=== PATIENT | male | born 1990 | race Hispanic/Latino ===

== ENCOUNTER 2018-05-05 19:04 | Emergency (ER) | payer OTHER ==
[2018-05-05 20:09] LABS: Urine Amorphous Sediment 1+ /HPF (NONE SEEN); Urine Bacteria <20 /HPF (NONE SEEN); Urine Culture Reflex Order NOT NEEDED
[2018-05-05 20:09] LABS: Urine Blood 2+ (NEG); Urine Glucose NEGATIVE (NEG); Urine Protein NEGATIVE (NEG)
[2018-05-05] MEDS ORDERED: NA CHLORIDE 0.9% 1,000 ML ONE ×2 (20:51→22:01)
[2018-05-05 20:59] LABS: Absolute Lymphocytes (CBC) 0.6 K/uL (0.7-4.9); Absolute Monocytes 0.6 K/uL (0.1-1.3); Absolute Neutrophil 9.7 K/uL (1.8-8.0); Basophils % 0.2 % (0-1.3); Hematocrit 45.4 % (39.6-49.0); Lymphocytes % 5.6 % (15.3-44.8); MCH 30.9 pg (27.0-35.0); MCV 89.3 fL (80-100); MPV 9.4 fL (7.6-11.3); Monocytes % 5.7 % (3.3-12.3); RBC Red Blood Cell Count 5.09 M/uL (4.33-5.43)
--- NOTE | 2018-05-05 21:00 | RAD REPORT ---
EXAM DESCRIPTION: CT - Stone Protocol - 05/05/2018 8:39 pm CLINICAL HISTORY: Abdominal pain. Hematuria/left-sided pain COMPARISON: None. TECHNIQUE: Computed axial tomography of the abdomen pelvis was obtained without oral or IV contrast. Lack of IV and oral contrast limits evaluation of solid organs, bowel, and vessels. Coronal reformat bteo images were obtained and reviewed. All CT scans are performed using dose optimization technique as appropriate and may include automated exposure control or mA/KV adjustment according to patient size. FINDINGS: A renal calculus is not seen. An ureteral calculus is not noted. A bladder calculus is not present. The liver, spleen, pancreas and adrenals appear grossly normal There is no evidence of diverticulitis. The Tiny umbilical hernia is seen IMPRESSION: Negative for a genitourinary calculus
--- NOTE | 2018-05-05 21:01 | RAD REPORT ---
EXAM DESCRIPTION: [facility] Single View05/05/2018 8:35 pm CLINICAL HISTORY: cough COMPARISON: none FINDINGS: The lungs appear clear of acute infiltrate. The heart is normal size IMPRESSION: No acute abnormalities displayed
[2018-05-05 21:13] LABS: ALT/SGPT 35 U/L (12-78); AST/SGOT 21 U/L (15-37); Albumin 4.5 g/dL (3.4-5.0); Alkaline Phosphatase 91 U/L (45-117); BUN Blood Urea Nitrogen 9 mg/dL (7-18); Bicarbonate 29 mmol/L (21-32); Bilirubin Direct 0.2 mg/dL (0-0.2); Bilirubin Total 0.7 mg/dL (0.2-1.0); Glucose Level 101 mg/dL (74-106); Lipase 95 U/L (73-393); Potassium 3.7 mmol/L (3.5-5.1); Protein, Total 8.1 g/dL (6.4-8.2); Sodium Level 138 mmol/L (136-145)
[2018-05-05 21:28] LABS: Platelet Estimate ADEQ; Urine White Blood Cell Casts OK
[2018-05-05 21:29] LABS: Blood Morphology Comment NOT SEEN (NOT SEEN)
[2018-05-05] MEDS ORDERED: IBUPROFEN 400 MG TAB ONE (21:49)
--- NOTE | 2018-05-05 22:45 | EDPHYS ---
Physician Documentation [facility] Name: Jorge Sanford III Age: 27 yrs Sex: Male : 1990 Arrival Date: 05/05/2018 Time: 19:11 Bed 23 Private MD: ED Physician Romulo Saab HPI: 05/05 19:50 This 27 yrs old Male presents to ER via Ambulatory with complaints of Urinary cp Problem, BLOOD IN URINE. 19:50 The patient presents with urinary symptoms, hematuria. cp 19:50 Onset: The symptoms/episode began/occurred today. Associated signs and symptoms: cp Pertinent positives: fever, hematuria, left lower back pain, Pertinent negatives: abdominal pain, constipation, diarrhea, dysuria, vomiting. Severity of symptoms: in the emergency department the symptoms are unchanged, despite home interventions. Historical: - Allergies: 19:37 No Known Allergies; aj1 - Home Meds: 19:37 None [Active]; aj1 - PMHx: 19:37 None; aj1 - PSHx: 19:37 None; aj1 - Immunization history:: Flu vaccine is not up to date. - Social history:: Smoking status: Patient uses tobacco products, smokes one-half pack cigarettes per day. - Ebola Screening: : Patient denies travel to an Ebola-affected area in the 21 days before illness onset. ROS: 19:55 Constitutional: Positive for fever, Negative for poor PO intake. cp 19:55 Eyes: Negative for injury, pain, redness, and discharge. cp 19:55 Neck: Negative for pain with movement, pain at rest, stiffness. 19:55 Cardiovascular: Negative for chest pain, palpitations. 19:55 Respiratory: Positive for cough, Negative for shortness of breath, wheezing. 19:55 Abdomen/GI: Negative for abdominal pain, black/tarry stool, rectal bleeding. 19:55 Back: Positive for pain at rest, pain with movement, of the left low back. 19:55 : Positive for hematuria, Negative for penile discharge, penile pain, testicular pain 19:55 Skin: Negative for cellulitis, rash. 19:55 Neuro: Negative for altered mental status, headache, weakness. 19:55 All other systems are negative. Exam: 20:05 Constitutional: The patient appears in no acute distress, alert, awake, cp non-diaphoretic, non-toxic, well developed, well nourished, febrile. 20:05 Head/Face: Normocephalic, atraumatic. Eyes: Pupils equal round and reactive to light, cp extra-ocular motions intact. Lids and lashes normal. Conjunctiva and sclera are non-icteric and not injected. Cornea within normal limits. Periorbital areas with no swelling, redness, or edema. ENT: Nares patent. No nasal discharge, no septal abnormalities noted. Tympanic membranes are normal and external auditory canals are clear. Oropharynx with no redness, swelling, or masses, exudates, or evidence of obstruction, uvula midline. Mucous membranes moist. Neck: Trachea midline, no thyromegaly or masses palpated, and no cervical lymphadenopathy. Supple, full range of motion without nuchal rigidity, or vertebral point tenderness. No Meningismus. Chest/axilla: Normal chest wall appearance and motion. Nontender with no deformity. No lesions are appreciated. 20:05 Cardiovascular: Rate: tachycardic, Rhythm: regular, Edema: is not appreciated. 20:05 Respiratory: the patient does not display signs of respiratory distress, Respirations: normal, no use of accessory muscles, no retractions, no splinting, no tachypnea, labored breathing, is not present, Breath sounds: are clear throughout, no decreased breath sounds, no stridor, no wheezing. 20:05 Abdomen/GI: Inspection: abdomen appears normal, Bowel sounds: active, all quadrants, Palpation: abdomen is soft and non-tender, in all quadrants, rebound tenderness, is not appreciated, involuntary guarding, is not appreciated. 20:05 Back: pain, that is mild, of the left low back, ROM is normal, Straight leg raises: of both lower extremities does not illicit pain. 20:05 : Male external genitalia: Circumcision noted. swelling: is not appreciated, tenderness, is not appreciated, Sexual behavior: the patient is sexually active, and reports a single partner. 20:05 Skin: cellulitis, is not appreciated, no rash present. 20:05 Neuro: Orientation: to person, place \T\ time. Mentation: is normal, Cerebellar function: is grossly normal, Motor: moves all fours, strength is normal, Sensation: is normal, Gait: is steady. Vital Signs: 19:37 BP 137 / 89; Pulse 120; Resp 20; Temp 100.1; Pulse Ox 98% on R/A; Weight 78.02 kg (R); aj1 Height 5 ft. 5 in. (165.10 cm) (R); Pain 10/10; 20:30 BP 136 / 88; Pulse 115; Resp 18; Pulse Ox 99% on R/A; kr2 21:44 BP 143 / 86; Pulse 109; Resp 17; Temp 102.4; Pulse Ox 100% on R/A; kr2 22:35 BP 142 / 82 LA Supine (auto/reg); Pulse 104; Resp 17; Temp 101.2(O); Pulse Ox 98% on jp3 R/A; 19:37 Body Mass Index 28.62 (78.02 kg, 165.10 cm) aj1 MDM: 19:40 Patient medically screened. cp 20:00 Differential diagnosis: UTI, urinary retention, prostatitis, urethritis, kidney stone. cp 22:44 Data reviewed: vital signs, nurses notes, lab test result(s), radiologic studies, CT cp scan, plain films. 22:44 Counseling: I had a detailed discussion with the patient and/or guardian regarding: the cp historical points, exam findings, and any diagnostic results supporting the discharge/admit diagnosis, lab results, radiology results, the need for outpatient follow up, a family practitioner, to return to the emergency department if symptoms worsen or persist or if there are any questions or concerns that arise at home. Response to treatment: the patient's symptoms have markedly improved after treatment, VSS. Symptoms improved with IV fluids and meds. Radiology studies negative for acute findings, and as a result, I will discharge patient. 05/05 19:46 Order name: Urine Microscopic Only; Complete Time: 20:16 aa1 05/05 21:12 Interpretation: Normal except: URBC 10-20. cp 05/05 19:47 Order name: Urine Dipstick--Ancillary (enter results) mw2 05/05 19:48 Order name: Urine Dipstick-Ancillary; Complete Time: 20:16 EDMS 05/05 21:12 Interpretation: UBLD 2+. cp 05/05 20:17 Order name: Basic Metabolic Panel; Complete Time: 21:25 cp 05/05 21:26 Interpretation: Reviewed. cp 05/05 20:17 Order name: CBC with Diff; Complete Time: 21:40 cp 05/05 21:13 Interpretation: Normal except: WBC 11.0; NORA% 88.5; LYM% 5.6; NEUT A 9.7; LYMA 0.6. 05/05 20:17 Order name: Creatinine for Radiology; Complete Time: 21:25 cp 05/05 21:26 Interpretation: Reviewed. 05/05 20:17 Order name: Hepatic Function; Complete Time: 21:25 cp 05/05 21:25 Interpretation: Normal except: GLOB 3.6. 05/05 20:17 Order name: Lipase; Complete Time: 21:25 cp 05/05 21:26 Interpretation: LIP 95; Reviewed. 05/05 20:17 Order name: CT Stone Protocol; Complete Time: 21:03 cp 05/05 21:04 Interpretation: Report reviewed. 05/05 20:17 Order name: Influenza Screen (a \T\ B); Complete Time: 21:40 cp 05/05 21:41 Interpretation: Reviewed. 05/05 20:17 Order name: XRAY Chest (1 view); Complete Time: 21:03 cp 05/05 21:13 Interpretation: Report review. 05/05 21:04 Order name: CBC Smear Scan; Complete Time: 21:40 EDMS 05/05 20:17 Order name: IV Saline Lock; Complete Time: 20:34 cp 05/05 20:17 Order name: Labs collected and sent; Complete Time: 20:34 cp 05/05 20:18 Order name: Misc. Order: draw blood cultures and place to side; Complete Time: 20:34 cp 05/05 22:34 Order name: Vital Signs: please update to include temp; Complete Time: 22:39 cp Administered Medications: 20:45 Drug: NS 0.9% 1000 ml Route: IV; Rate: 1 bolus; Site: right antecubital; kr2 21:44 Follow up: Response: No adverse reaction; IV Status: Completed infusion kr2 21:44 Drug: Ibuprofen 800 mg Route: PO; kr2 22:40 Follow up: Response: No adverse reaction; Temperature is decreased; Pain is decreased kr2 21:57 Drug: NS 0.9% 1000 ml Route: IV; Rate: 1 bolus; Site: right antecubital; kr2 22:40 Follow up: Response: No adverse reaction; IV Status: Completed infusion kr2 22:47 Drug: Tylenol 1000 mg Route: PO; kr2 22:52 Follow up: Response: Medication administered at discharge. kr2 Disposition: 05/05/18 22:44 Discharged to Home. Impression: Hematuria, unspecified, Low back pain, Fever, unspecified. - Condition is Stable. - Discharge Instructions: Back Pain, Adult, Fever, Adult, Hematuria, Adult. - Prescriptions for Ibuprofen 800 mg Oral Tablet - take 1 tablet by ORAL route every 8 hours As needed take with food; 30 tablet. - Medication Reconciliation Form, Thank You Letter, Antibiotic Education, Prescription Opioid Use form. - Follow up: Private Physician; When: 1 - 2 days; Reason: Recheck today's complaints. - Problem is new. - Symptoms have improved. Addendum: 05/07/2018 04:07 Co-signature as Attending Physician, Romulo Saab MD I agree with the assessment and w a plan of care. Signatures: Dispatcher [employer] EDHetal Garcia RN RN aj1 Eder Riggs PA PA Romulo Adams MD MD wi Tierra Auguste RN RN kr2 Corrections: (The following items were deleted from the chart) 05/05 21:13 21:13 Normal except: WBC 11.0; NORA% 88.5; LYM% 5.6; NEUT A 9.7. cp cp 22:53 22:44 05/05/2018 22:44 Discharged to Home. Impression: Hematuria, unspecified; Low back kr2 pain; Fever, unspecified. Condition is Stable. Forms are Medication Reconciliation Form, Thank You Letter, Antibiotic Education, Prescription Opioid Use. Follow up: Private Physician; When: 1 - 2 days; Reason: Recheck today's complaints. Problem is new. Symptoms have improved. cp
--- NOTE | 2018-05-05 22:45 | ER ---
Nurse's Notes [facility] Name: Jorge Sanford III Age: 27 yrs Sex: Male : 1990 Arrival Date: 05/05/2018 Time: 19:11 Bed 23 Private MD: Diagnosis: Hematuria, unspecified;Low back pain;Fever, unspecified Presentation: 05/05 19:34 Presenting complaint: Patient states: "Around 4, I went to the restroom and there was aj1 blood in my urine. I went home and peed again and it was a tint of red." Denies dysuria, urinary frequency. Transition of care: patient was not received from another setting of care. Onset of symptoms was May 05, 2018. Risk Assessment: Do you want to hurt yourself or someone else? Patient reports no desire to harm self or others. Initial Sepsis Screen: Does the patient meet any 2 criteria? HR > 90 bpm. No. Patient's initial sepsis screen is negative. Does the patient have a suspected source of infection? Yes: Dysuria/Frequency/Urgency/UTI. Care prior to arrival: None. 19:34 Method Of Arrival: Ambulatory aj1 19:34 Acuity: NINA 3 aj1 Triage Assessment: 19:37 General: Appears in no apparent distress. uncomfortable, Behavior is calm, cooperative, aj1 appropriate for age. Pain: Complains of pain in face and back Pain currently is 10 out of 10 on a pain scale. Neuro: Level of Consciousness is awake, alert, obeys commands. Cardiovascular: Patient's skin is warm and dry. Respiratory: Airway is patent Respiratory effort is even, unlabored, Respiratory pattern is regular, symmetrical. Historical: - Allergies: 19:37 No Known Allergies; aj1 - Home Meds: 19:37 None [Active]; aj1 - PMHx: 19:37 None; aj1 - PSHx: 19:37 None; aj1 - Immunization history:: Flu vaccine is not up to date. - Social history:: Smoking status: Patient uses tobacco products, smokes one-half pack cigarettes per day. - Ebola Screening: : Patient denies travel to an Ebola-affected area in the 21 days before illness onset. Screenin:50 Abuse screen: Denies threats or abuse. Denies injuries from another. Nutritional kr2 screening: No deficits noted. Tuberculosis screening: No symptoms or risk factors identified. Fall Risk None identified. Assessment: 19:46 General: Appears in no apparent distress. uncomfortable, well groomed, well developed, kr2 well nourished, Behavior is calm, cooperative, appropriate for age. Pain: Complains of pain in head, back and entire body Pain currently is 10 out of 10 on a pain scale. Quality of pain is described as aching, Is continuous, Alleviated by rest. Neuro: Level of Consciousness is awake, alert, obeys commands, Oriented to person, place, time, situation, Appropriate for age. Cardiovascular: Capillary refill < 3 seconds in bilateral fingers Patient's skin is warm and dry. Respiratory: Airway is patent Respiratory effort is even, unlabored, Respiratory pattern is regular, symmetrical. GI: Abdomen is flat, non-distended. : Reports blood in urine and "pain when the blood came out." Denies having a history of kidney stones or any trauma. States he always has back pain. EENT: Oral mucosa is moist. Derm: Skin is intact, is healthy with good turgor, Skin is pink, warm \\T\\ dry. Musculoskeletal: Circulation, motion, and sensation intact. 20:53 Reassessment: Patient appears in no apparent distress at this time. Patient and/or kr2 family updated on plan of care and expected duration. Pain level reassessed. Patient is alert, oriented x 3, equal unlabored respirations, skin warm/dry/pink. 21:49 Reassessment: Patient appears in no apparent distress at this time. Patient and/or kr2 family updated on plan of care and expected duration. Pain level reassessed. Patient is alert, oriented x 3, equal unlabored respirations, skin warm/dry/pink. 22:41 Reassessment: Patient appears in no apparent distress at this time. Patient and/or kr2 family updated on plan of care and expected duration. Pain level reassessed. Patient is alert, oriented x 3, equal unlabored respirations, skin warm/dry/pink. Patient states feeling better. Vital Signs: 19:37 BP 137 / 89; Pulse 120; Resp 20; Temp 100.1; Pulse Ox 98% on R/A; Weight 78.02 kg (R); aj1 Height 5 ft. 5 in. (165.10 cm) (R); Pain 10/10; 20:30 BP 136 / 88; Pulse 115; Resp 18; Pulse Ox 99% on R/A; kr2 21:44 BP 143 / 86; Pulse 109; Resp 17; Temp 102.4; Pulse Ox 100% on R/A; kr2 22:35 BP 142 / 82 LA Supine (auto/reg); Pulse 104; Resp 17; Temp 101.2(O); Pulse Ox 98% on jp3 R/A; 19:37 Body Mass Index 28.62 (78.02 kg, 165.10 cm) aj1 ED Course: 19:11 Patient arrived in ED. al2 19:35 Urine collected: clean catch specimen, clear, donaldo colored, Amount Voided: 120mL. jp3 19:37 Triage completed. aj1 19:37 Arm band placed on Patient placed in an exam room. aj1 19:40 Eder Riggs PA is PHCP. cp 19:40 Romulo Saab MD is Attending Physician. cp 19:48 Urine Microscopic Only Sent. jp3 19:51 Patient has correct armband on for positive identification. Bed in low position. Call kr2 light in reach. Side rails up X 1. Adult w/ patient. Pulse ox on. NIBP on. Door closed. Warm blanket given. Head of bed elevated. 20:[address] via wheelchair. vr 20:30 Initial lab(s) drawn, by me, sent to lab. First set of blood cultures drawn by me, Flu jp3 and/or RSV swab sent to lab. Inserted saline lock: 20 gauge in right antecubital area, using aseptic technique. Blood collected. 20:36 XRAY Chest (1 view) In Process Unspecified. EDMS 20:39 CT completed. Patient tolerated procedure well. Patient moved back from CT. nj 20:39 CT Stone Protocol In Process Unspecified. EDMS 20:39 Influenza Screen (a \\T\\ B) Sent. jp3 20:39 Basic Metabolic Panel Sent. jp3 20:39 CBC with Diff Sent. jp3 20:39 Creatinine for Radiology Sent. jp3 20:39 Hepatic Function Sent. jp3 20:39 Lipase Sent. jp3 20:40 Urine Dipstick--Ancillary (enter results) Sent. jp3 20:52 Tierra Auguste, RN is Primary Nurse. kr2 22:50 IV discontinued, intact, bleeding controlled, No redness/swelling at site. Pressure jp3 dressing applied. 22:52 No provider procedures requiring assistance completed. kr2 22:53 IV Dc'd by [facility] at 2250, see note above. kr2 Administered Medications: 20:45 Drug: NS 0.9% 1000 ml Route: IV; Rate: 1 bolus; Site: right antecubital; kr2 21:44 Follow up: Response: No adverse reaction; IV Status: Completed infusion kr2 21:44 Drug: Ibuprofen 800 mg Route: PO; kr2 22:40 Follow up: Response: No adverse reaction; Temperature is decreased; Pain is decreased kr2 21:57 Drug: NS 0.9% 1000 ml Route: IV; Rate: 1 bolus; Site: right antecubital; kr2 22:40 Follow up: Response: No adverse reaction; IV Status: Completed infusion kr2 22:47 Drug: Tylenol 1000 mg Route: PO; kr2 22:52 Follow up: Response: Medication administered at discharge. kr2 Outcome: 22:44 Discharge ordered by MD. cp 22:52 Discharged to home ambulatory, with family. kr2 22:52 Condition: good 22:52 Discharge instructions given to patient, family, Instructed on discharge instructions, follow up and referral plans. medication usage, Demonstrated understanding of instructions, follow-up care, medications, Prescriptions given X 1. 22:53 Patient left the ED. kr2 Signatures: Dispatcher [employer] EDHetal Garcia RN RN Porsha Meléndez Corey, PA PA cp Jordan, Nathan nj Reaves, Karey, RN RN kr2 Priscila Singh Jacob jp3 Corrections: (The following items were deleted from the chart) 22:42 22:35 Temp 101.2F Oral; jp3 jp3
[2018-05-05] MEDS ORDERED: ACETAMINOPHEN 500 MG TAB ONE (22:53)
== END 2018-05-05 22:53 | disposition home or self-care (01) ==
LOC: ER 19:04
DX: M54.5 Low back pain (principal); R50.9 Fever, unspecified; F17.210 Nicotine dependence, cigarettes, uncomplicated
CPT/HCPCS: 36415; 71045; 74176; 76377; 80048; 80076; 81003; 81015; 83690; 85025; 87804; 96360; 96361; 99284; J7030

== ENCOUNTER 2021-06-18 07:32 | Day surgery (SDC) | payer BC ==
[2021-06-18] MEDS ORDERED: Ringers Lactate 1,000 ML IV ONE (07:35)
[2021-06-18] MEDS ORDERED: propofoL 200 MG/20 ML VIAL IV ONE ×3 (08:34→08:51)
[2021-06-18] MEDS ORDERED: LIDOCAINE 1% MPF 5 ML VIAL ONE (08:34)
--- NOTE | 2021-06-18 09:03 | ENDO RPT ---
[address], [address] EGD PROCEDURE REPORT EXAM DATE: 06/18/2021 PATIENT NAME: Jogre Sanford MR#: [id number] BIRTHDATE: 1990 ATTENDING: Rachid Pope DR STATUS: outpatient PEGA DEVELOPER: Lee Ann Guerrero RN and Marielle Gustafson INDICATIONS: The patient is a 30 yr old Male here for an EGD due to mid epigastric abdominal pain PROCEDURE PERFORMED: EGD with biopsy for H. pylori MEDICATIONS: Per Anesthesia. TOPICAL ANESTHETIC: none CONSENT: The patient understands the risks and benefits of the procedure and understands that these risks include, but are not limited to: sedation, allergic reaction, infection, perforation and/or bleeding. Alternative means of evaluation and treatment include, among others: physical exam, x-rays, and/or surgical intervention. The patient elects to proceed with this endoscopic procedure. DESCRIPTION OF PROCEDURE: During intra-op preparation period all mechanical medical equipment was checked for proper function. Hand hygiene and appropriate measures for infection prevention was taken. Procedure, possible complications, and alternatives including but not limited to the possibility of bleeding, perforation, tear, infection, sepsis, need for surgery, need for blood transfusion, and anesthesia related complications were explained to the patient. After the risks, benefits and alternatives of the procedure were thoroughly explained, Informed consent was verified, confirmed and timeout was successfully executed by the treatment team. The patient was placed in the left lateral position. The patient was anesthetized with topical anesthesia. Through the anesthetized oropharyngeal area, the scope was passed without any difficulty. The EG-[id number] ([id number]) endoscope was introduced through the mouth and advanced to the third portion of the duodenum. Retroflexed views revealed no abnormalities. The gastroscope was then slowly withdrawn and removed. Mild gastritis was found in the body and the antrum of the stomach. Multiple biopsies were obtained and sent to pathology. A biopsy for H. pylori was taken. An erosion was found in the upper esophagus. Located 12 cm from the point of entry. A biopsy of the GEJ was obtained to rule out Yadav's. ADVERSE EVENTS: There were no complications. IMPRESSIONS: 1. Mild gastritis was found in the body and the antrum of the stomach 2. An erosion was found in the upper esophagus RECOMMENDATIONS: 1. acid suppression therapy 2. anti-reflux regimen 3. await biopsy results 4. follow-up: office 2 week(s) 5. avoid NSAIDS 6. follow-up of helicobacter pylori status, treat if indicated REPEAT EXAM: Rachid Pope DR eSigned: Rachid Pope DR 06/18/2021 9:02 AM cc: CPT CODES: ICD9 CODES: PATIENT NAME: Jorge Sanford MR#: [id number]
[2021-06-18 09:17] VITALS: TEMP 97.2
[2021-06-18 09:28] VITALS: BP 107/86; O2SAT 99
== END 2021-06-18 09:32 | disposition home or self-care (01) ==
LOC: OR 07:32
PROVIDERS: ATTEND Surgery
PROC: 0DB68ZX Excision of Stomach, Via Natural or Artificial Opening Endoscopic, Diagnostic (ICD-10-PCS; 2021-06-18)
PROC: 0DB18ZX Excision of Upper Esophagus, Via Natural or Artificial Opening Endoscopic, Diagnostic (ICD-10-PCS; 2021-06-18)
PROC: 0DB98ZX Excision of Duodenum, Via Natural or Artificial Opening Endoscopic, Diagnostic (ICD-10-PCS; principal; 2021-06-18 08:45)
DX: K21.00 Gastro-esophageal reflux disease with esophagitis, without bleeding (principal); K80.20 Calculus of gallbladder without cholecystitis without obstruction; R10.13 Epigastric pain; Z20.822 Contact with and (suspected) exposure to COVID-19; K29.50 Unspecified chronic gastritis without bleeding
CPT/HCPCS: 88312; 88305; 43239; U0003; J2704 ×2; J7120